=== PATIENT | male | born 1955 | race Asian ===

== ENCOUNTER 2022-07-10 10:10 | Day surgery (SDC) | payer MEDICARE, MEDICAID ==
[~2022-07-10] VITALS: Ht 167.6 cm; Wt 65.9 kg
[~2022-07-10 10:10] MED LIST: ATOR80TA PO; BACL10TA PO; CLOP75TA15 PO; GABA-530 PO; HYDR25TA4 PO; LISI10TA27 PO
[2022-07-10 10:20] VITALS: BP 105/71
[2022-07-10] MEDS ORDERED: MIDAZolam 1 MG/ML 5ML VIAL ONE ×2 (11:14→11:15)
[2022-07-10] MEDS ORDERED: fentaNYL/PF 50MCG/1 ML 2ML syringe ONE (11:14)
[2022-07-10 11:50] VITALS: BP 109/57
[2022-07-10 12:00] VITALS: BP 105/71
[2022-07-10 12:10] VITALS: BP 126/55
[2022-07-10 12:20] VITALS: BP 130/63
== END 2022-07-10 12:25 | disposition home or self-care (01) ==
LOC: GI LAB 10:10
PROVIDERS: ATTEND Internal Medicine Gastroenterology
DX: R19.5 Other fecal abnormalities (principal); D12.2 Benign neoplasm of ascending colon; K64.1 Second degree hemorrhoids; E78.00 Pure hypercholesterolemia, unspecified; F17.210 Nicotine dependence, cigarettes, uncomplicated; Z72.89 Other problems related to lifestyle; Z79.899 Other long term (current) drug therapy
CPT/HCPCS: 45385; C1889; G0500; J2250; J3010; J7030; Z7512; 99152; 99153; A4620